=== PATIENT | female | born 1965 | race American Indian/Alaskan Native ===

== ENCOUNTER 2018-03-02 09:30 | Outpatient (CLI) | payer OTHER ==
--- NOTE | 2018-03-02 11:44 | XRay Report ---
ROUTINE CHEST, TWO VIEWS: HISTORY: Chest pain. The trachea, heart, mediastinal contour, lung cook and bony thorax are unremarkable. Healed left eighth and ninth rib fractures are noted. IMPRESSION: Unremarkable chest x-ray.
== END 2018-03-02 09:31 | disposition home or self-care (01) ==
LOC: PF 09:30
PROVIDERS: ATTEND Internal Medicine
DX: Z02.71 Encounter for disability determination (principal); R07.9 Chest pain, unspecified; J45.909 Unspecified asthma, uncomplicated; M19.90 Unspecified osteoarthritis, unspecified site
CPT/HCPCS: 71046; 94010